=== PATIENT | female | born 1980 | race Caucasian/White ===

== ENCOUNTER 2016-05-04 20:08 | Emergency (ER) | payer MEDICAID ==
[~2016-05-04] VITALS: Ht 165.1 cm; Wt 103.0 kg
[2016-05-04 21:50] VITALS: BP 137/76
== END 2016-05-04 22:14 | disposition left against medical advice (07) ==
LOC: ER 20:09
DX: K08.89 Other specified disorders of teeth and supporting structures (principal); Z53.21 Procedure and treatment not carried out due to patient leaving prior to being seen by health care provider
CPT/HCPCS: 93005

== ENCOUNTER 2018-05-21 15:34 | Inpatient (IN) | payer MEDICAID ==
[~2018-05-21] VITALS: Ht 165.1 cm; Wt 98.3 kg
[2018-05-21 15:58] LABS: Basophils # (auto) 0.1 uL; Eosinophils # (auto) 0.2 uL; Hematocrit 37.1 % (36.0-46.0); Hemoglobin 11.5 g/dL (12.2-16.2); Lymphocytes # (auto) 1.9 uL; Monocytes # (auto) 0.8 uL
[2018-05-21 16:01] LABS: Basophils % (auto) 0.8 % (0.0-2.0); Eosinophils % (auto) 2.4 % (0.0-7.0); Lymphocytes % (auto) 20.4 % (10.0-50.0); Mean Corpuscular Hemoglobin 21.4 pg (28.0-32.0); Mean Corpuscular Hgb Conc. 30.9 g/dL (32.0-36.0); Mean Corpuscular Volume 69.2 fL (80.0-100.0); Monocytes % (auto) 8.6 % (0.0-12.0); Neutrophils # (auto) 6.2 uL; Neutrophils % (auto) 67.8 % (37.0-80.0); Nucleated Red Blood Cells % 0.1 %; Platelet Count (auto) 310 10^3/uL (140-450); Red Blood Cells 5.36 10^6/uL (4.0-5.20); Red Cell Distribution Width 18.7 % (11.8-14.3); White Blood Cell 9.1 10^3/uL (4.4-10.8)
[2018-05-21 16:13] LABS: Albumin 3.5 g/dL (3.4-5.0); Calcium 9.8 mg/dL (8.5-10.1); Magnesium 2.5 mg/dL (1.6-2.6)
[2018-05-21 16:17] LABS: BUN/Creatinine Ratio 12.5; Bilirubin, Total 0.3 mg/dL (0.2-1.0); Total Protein 8.1 g/dL (6.4-8.2)
[2018-05-21 16:47] LABS: Urine Amorphous Crystal MOD /hpf (None Seen); Urine Bacteria NONE SEEN /hpf (None Seen); Urine Blood Negative /uL (Negative); Urine Specific Gravity 1.016 (1.001-1.035); Urine WBC 1 /hpf (0 - 5)
[2018-05-21] MEDS ORDERED: IOHEXOL 350 MG/ML 100ML IJ ONE (20:17)
[2018-05-21] MEDS ORDERED: ENOXAPARIN SOD 100 MG/1 ML SYRINGE SC ONE (21:00)
[2018-05-21] MEDS ORDERED: HYDROcodone-ACET 10/325MG TAB PO ONE (22:30)
[2018-05-22] MEDS: ONDANSETRON HCL 4 MG/2 ML VIAL IV PRN ×4 (00:14→21:39)
[2018-05-22 05:55] LABS: Calcium 9.1 mg/dL (8.5-10.1)
[2018-05-22 06:03] LABS: Eosinophils # (auto) 0.1 uL; Hematocrit 33.3 % (36.0-46.0); Lymphocytes # (auto) 2.2 uL; Monocytes # (auto) 0.7 uL; Monocytes % (auto) 8.1 % (0.0-12.0); Neutrophils % (auto) 62.1 % (37.0-80.0); Nucleated Red Blood Cells % 0.1 %
[2018-05-22 06:08] LABS: INR 1.04 (0.9-1.15); Partial Thromboplastin Time 30.5 sec (23.78-33.04); Prothrombin Time 11.1 sec (9.27-12.13)
[2018-05-22 06:14] LABS: Basophils # (auto) 0 uL; Basophils % (auto) 0.5 % (0.0-2.0); Eosinophils % (auto) 1.7 % (0.0-7.0); Hemoglobin 10.4 g/dL (12.2-16.2); Lymphocytes % (auto) 27.6 % (10.0-50.0); Mean Corpuscular Hemoglobin 21.8 pg (28.0-32.0); Mean Corpuscular Hgb Conc. 31.3 g/dL (32.0-36.0); Mean Corpuscular Volume 69.5 fL (80.0-100.0); Platelet Count (auto) 275 10^3/uL (140-450); Red Blood Cells 4.79 10^6/uL (4.0-5.20); Red Cell Distribution Width 18.8 % (11.8-14.3)
[2018-05-22 06:58] LABS: White Blood Cell 8.1 10^3/uL (4.4-10.8)
[2018-05-22] MEDS: APIXABAN 5 MG TAB PO SCH ×2 (09:57→21:39)
[2018-05-22] MEDS: FAMOTIDINE 20 MG TAB PO SCH ×2 (09:57→21:39)
[2018-05-22] MEDS ORDERED: APIXABAN 5 MG TAB PO SCH (10:00)
[2018-05-22] MEDS: HYDROcodone-ACET 5/325MG TAB PO PRN ×2 (13:19→20:48)
--- NOTE | 2018-05-22 17:46 | NUR ---
ADMIT: Telemetry admit from RENETTA GIPSON admitted to Telemetry unit after SBAR received. Patient oriented to LOW FELIZ, primary RN, unit, room, bed, and unit policies regarding patient care and visiting hours. Patient now on continuous telemetry monitoring, tele box # 15 and telemetry reading on arrival to unit is SR 72. Patient placed on room air, weighed by bedscale and encouraged to call if they need something. All questions and concerns addressed, patient verbalized understanding. Note:
--- NOTE | 2018-05-22 19:05 | NUR ---
Opening Note Received report from day shift RN. Patient is awake, alert and oriented x4. No signs or symptoms of distress noted at this time. Patient states headache 09/25. Will medicated per orders. Reviewed plan of care with patient, patient verbalized understanding. Family at bedside. Bed in low and locked position, call light within reach. Will continue to monitor Q1 hour and PRN.
--- NOTE | 2018-05-22 19:23 | NUR ---
CLOSING SHIFT NOTE: Report given to NOC RN, Sarita. Endorsed care of patient.
[2018-05-22 22:00] VITALS: BP 106/52
--- NOTE | 2018-05-23 03:31 | NUR ---
Patient resting in bed with eyes closed. No signs or symptoms of distress noted at this time. Will continue to monitor Q1 hour and PRN.
[2018-05-23 05:00] VITALS: BP 103/51
[2018-05-23 06:54] LABS: Basophils # (auto) 0.1 uL; Basophils % (auto) 0.8 % (0.0-2.0); Eosinophils # (auto) 0.2 uL; Eosinophils % (auto) 2.9 % (0.0-7.0); Hematocrit 32.7 % (36.0-46.0); Hemoglobin 10.3 g/dL (12.2-16.2); Lymphocytes # (auto) 1.8 uL; Lymphocytes % (auto) 25.3 % (10.0-50.0); Mean Corpuscular Hemoglobin 21.8 pg (28.0-32.0); Mean Corpuscular Hgb Conc. 31.4 g/dL (32.0-36.0); Mean Corpuscular Volume 69.2 fL (80.0-100.0); Monocytes # (auto) 0.6 uL; Monocytes % (auto) 7.7 % (0.0-12.0); Neutrophils # (auto) 4.6 uL; Neutrophils % (auto) 63.3 % (37.0-80.0); Platelet Count (auto) 261 10^3/uL (140-450); Red Blood Cells 4.72 10^6/uL (4.0-5.20); Red Cell Distribution Width 18.5 % (11.8-14.3); White Blood Cell 7.2 10^3/uL (4.4-10.8)
[2018-05-23 07:20] LABS: % Iron Saturation 3.7 % (15-50)
[2018-05-23 07:26] LABS: BUN/Creatinine Ratio 15.7; Calcium 9.3 mg/dL (8.5-10.1); Magnesium 2.3 mg/dL (1.6-2.6)
--- NOTE | 2018-05-23 07:32 | NUR ---
Closing Note Report given to day shift RN. Patient is awake, alert and oriented x4. No signs or symptoms of distress noted at this time.
--- NOTE | 2018-05-23 07:35 | NUR ---
Opening Shift Note Assumed care of patient, awake and alert. No S/S of distress/SOB or pain. Instructed on POC and to call for assist PRN, will continue to monitor for changes Q1hr and PRN.
[2018-05-23 09:00] VITALS: BP 99/56
[2018-05-23] MEDS: FAMOTIDINE 20 MG TAB PO SCH ×2 (10:21→21:32)
[2018-05-23] MEDS: APIXABAN 5 MG TAB PO SCH ×2 (10:21→21:32)
[2018-05-23] MEDS: ONDANSETRON HCL 4 MG/2 ML VIAL IV PRN ×2 (10:50→21:36)
[2018-05-23] MEDS: HYDROcodone-ACET 5/325MG TAB PO PRN ×2 (10:51→21:36)
[2018-05-23 13:00] VITALS: BP 134/74
[2018-05-23] MEDS ORDERED: NICOTINE 21MG/24 HR TOPICAL PATCH TD ONE (13:30)
--- NOTE | 2018-05-23 13:50 | NUR ---
Patient was taken down to radiology department.
--- NOTE | 2018-05-23 14:36 | NUR ---
Patient is back in her room from radiology.
[2018-05-23] MEDS: ACETAMINOPHEN 500 MG TAB PO PRN (16:44)
[2018-05-23 17:54] VITALS: BP 121/76
--- NOTE | 2018-05-23 17:54 | NUR ---
Patient was moved to [address].
--- NOTE | 2018-05-23 19:00 | NUR ---
Closing note Patient resting in bed, no signs of distress noted.
--- NOTE | 2018-05-23 19:15 | NUR ---
Opening Note Received change of shift report from day shift RN. Patient is awake, alert and oriented x4. Patient denies pain at this time. No signs or symptoms of distress noted at this time. Patient is s/p thyroid biopsy, dressing is clean dry and intact. Reviewed plan of care with patient, patient verbalized understanding. Family at bedside. Bed in low and locked position, call light within reach. Will continue to monitor Q1 hour and PRN.
--- NOTE | 2018-05-23 21:40 | NUR ---
Patient complains of headache Patient given Colora for pain and Zofran per orders. Will continue to monitor Q1 hour and PRN.
[2018-05-23 22:00] VITALS: BP 127/75
--- NOTE | 2018-05-24 01:40 | NUR ---
Patient resting in bed with eyes closed. No signs or symptoms of distress noted at this time. Will continue to monitor Q1 hour and PRN.
--- NOTE | 2018-05-24 02:30 | NUR ---
Patient tele box replaced. Patient tele box not working correctly. Patient is now on tele #18 and is showing on the [place] monitor.
[2018-05-24 05:00] VITALS: BP 93/56
--- NOTE | 2018-05-24 07:16 | NUR ---
Closing Note Report given to day shift RN. Patient is awake, alert and oriented x4. No signs or symptoms of distress noted at this time.
[2018-05-24 07:51] LABS: Hematocrit 34.5 % (36.0-46.0); Hemoglobin 10.7 g/dL (12.2-16.2)
--- NOTE | 2018-05-24 08:30 | NUR ---
Stool sample sent to lab.
[2018-05-24 09:00] VITALS: BP 111/64
[2018-05-24] MEDS ORDERED: IOHEXOL 300 MG/ML 100ML BOTTLE IJ ONE (09:10)
[2018-05-24] MEDS: FAMOTIDINE 20 MG TAB PO SCH ×2 (09:59→21:25)
[2018-05-24] MEDS: APIXABAN 5 MG TAB PO SCH ×2 (09:59→21:27)
[2018-05-24] MEDS: NICOTINE 21MG/24 HR TOPICAL PATCH TD SCH (09:59)
[2018-05-24 13:00] VITALS: BP 112/65
[2018-05-24 16:29] VITALS: BP 117/70
[2018-05-24] MEDS: ACETAMINOPHEN 500 MG TAB PO PRN (16:36)
--- NOTE | 2018-05-24 19:00 | NUR ---
Closing note Patient resting in bed, family at bedside. No signs of distress noted.
--- NOTE | 2018-05-24 19:30 | NUR ---
OPENING NOTE REPORT RECEIVED FROM DAY SHIFT RN PATIENT IS RESTING IN BED, FAMILY IS AT BEDSIDE. POC DISCUSSED, ALL QUESTIONS ANSWERED. WILL MONITOR Q1H PRN THROUGHOUT SHIFT.CALL LIGHT WITHIN REACH.
--- NOTE | 2018-05-24 20:15 | NUR ---
TELE BOX CHANGED TELE BOX TO TELE #HC 8 PATIENT RUNNING SINUS RHYTHM
[2018-05-24] MEDS: HYDROcodone-ACET 5/325MG TAB PO PRN (21:26)
[2018-05-24 22:00] VITALS: BP 119/61
[2018-05-25] VITALS (7 sets, daily range): BP systolic 88–122; BP diastolic 58–74
--- NOTE | 2018-05-25 06:00 | NUR ---
BP REASSESSMENT BP NOW AT 116/74 NO S/S OF DISTRESS PATIENT STATES THAT EARLIER BP WAS LOW BECAUSE SHE WAS IN A "DEEP SLEEP"
[2018-05-25 06:31] LABS: Hematocrit 34.7 % (36.0-46.0)
--- NOTE | 2018-05-25 07:40 | NUR ---
CLOSING NOTE REPORT ENDORSED TO DAY SHIFT RN PATIENT IS RESTING. NO SOB OR DISTRESS NOTED, CALL LIGHT WITHIN REACH
--- NOTE | 2018-05-25 07:45 | NUR ---
Patient sitting in bed, awake, oriented x4, eating breakfast. No acute distress noted.
--- NOTE | 2018-05-25 10:45 | NUR ---
Family member at bedside.
[2018-05-25] MEDS: FAMOTIDINE 20 MG TAB PO SCH ×2 (10:46→22:04)
[2018-05-25] MEDS: APIXABAN 5 MG TAB PO SCH ×2 (10:46→22:04)
[2018-05-25] MEDS: NICOTINE 21MG/24 HR TOPICAL PATCH TD SCH (10:46)
--- NOTE | 2018-05-25 11:30 | NUR ---
Patient in bed, awake, no complaints of pain. No acute distress noted.
[2018-05-25] MEDS: HYDROcodone-ACET 5/325MG TAB PO PRN ×2 (14:02→22:04)
--- NOTE | 2018-05-25 14:02 | NUR ---
Patient stated she has headache and lower back pain, at 10/10 at this time. [place] 5/325 PO given as ordered.
--- NOTE | 2018-05-25 16:02 | NUR ---
Dr. Kerns at bedside.
--- NOTE | 2018-05-25 18:55 | NUR ---
Asked patient if she's in pain. Patient stated she has headache but refused [place] 5/325 at this time. Patient said she will wait until bedtime for pain medication.
--- NOTE | 2018-05-25 19:30 | NUR ---
RECEIVED PATIENT FROM DAY SHIFT RN. PATIENT RESTING IN BED. NO S/S OF DISTRESS NOTED C/O HEADACHE @ 09/25. NO PAIN MEDICATION REQUESTED FOR NOW. PATIENT PREFERRED TO TAKE IT AT BEDTIME. POC INSTRUCTED AND ENCOURAGED PATIENT TO CALL FOR EARTH SCIENCE TECHNICAL OFFICER IF NEEDED. BED IN LOWEST POSITION WITH SIDE RAILS UP X 2. CALL SINGH WITHIN REACH. CONTINUE TO MONITOR FOR CHANGES Q1H AND PRN.
--- NOTE | 2018-05-25 22:04 | NUR ---
PAIN MEDICATION GIVEN FOR SOLIS @ 09/25. CONTINUE TO MONITOR.
[2018-05-26 05:00] VITALS: BP 126/55
[2018-05-26 07:30] LABS: Basophils # (auto) 0.1 uL; Basophils % (auto) 0.7 % (0.0-2.0); Eosinophils # (auto) 0.3 uL; Hemoglobin 11.2 g/dL (12.2-16.2); Mean Corpuscular Hgb Conc. 31.2 g/dL (32.0-36.0); Monocytes # (auto) 0.7 uL; Monocytes % (auto) 9.2 % (0.0-12.0); Neutrophils # (auto) 4.7 uL
--- NOTE | 2018-05-26 07:32 | NUR ---
Patient came out of the bathroom. Patient no complaints of pain. Patient stated she pressed the call light for a towel, and it was already given to her by the aide.
[2018-05-26 07:34] LABS: Eosinophils % (auto) 4.1 % (0.0-7.0); Hematocrit 35.8 % (36.0-46.0); Lymphocytes # (auto) 1.8 uL; Lymphocytes % (auto) 24.2 % (10.0-50.0); Mean Corpuscular Hemoglobin 21.6 pg (28.0-32.0); Mean Corpuscular Volume 69.3 fL (80.0-100.0); Neutrophils % (auto) 61.8 % (37.0-80.0); Platelet Count (auto) 311 10^3/uL (140-450); Red Blood Cells 5.17 10^6/uL (4.0-5.20); Red Cell Distribution Width 18.5 % (11.8-14.3); White Blood Cell 7.5 10^3/uL (4.4-10.8)
[2018-05-26 07:47] LABS: Calcium 9.4 mg/dL (8.5-10.1)
[2018-05-26 09:00] VITALS: BP_SYST 98; BP_SYST 99; BP_DIAS 60; BP_DIAS 65
[2018-05-26] MEDS: FAMOTIDINE 20 MG TAB PO SCH ×2 (10:02→22:02)
[2018-05-26] MEDS: APIXABAN 5 MG TAB PO SCH ×2 (10:02→22:02)
[2018-05-26] MEDS: NICOTINE 21MG/24 HR TOPICAL PATCH TD SCH (10:03)
--- NOTE | 2018-05-26 10:06 | NUR ---
Patient in bed, denies pain at this time.
[2018-05-26 13:00] VITALS: BP 99/65
--- NOTE | 2018-05-26 13:09 | NUR ---
Dr. Kerns at bedside. MD ordered to follow up with Pulmonology Consult.
--- NOTE | 2018-05-26 16:25 | NUR ---
Patient walking on the hallway with family member. Steady gait noted.
[2018-05-26 18:09] VITALS: BP 122/84
[2018-05-26] MEDS: HYDROcodone-ACET 5/325MG TAB PO PRN (19:39)
--- NOTE | 2018-05-26 19:47 | NUR ---
RECEIVED PATIENT FROM DAY SHIFT RN. PATIENT RESTING IN BED. NO S/S OF DISTRESS NOTED C/O HEADACHE @ 8. MEDICATED PATIENT ORDERED. POC INSTRUCTED AND ENCOURAGED PATIENT TO CALL FOR WIRE MESH GATE ASSEMBLER IF NEEDED. BED IN LOWEST POSITION WITH SIDE RAILS UP X 2. CALL SINGH WITHIN REACH. CONTINUE TO MONITOR FOR CHANGES Q1H AND PRN.
[2018-05-26 22:00] VITALS: BP 115/56
--- NOTE | 2018-05-26 22:16 | NUR ---
PATIENT RESTING IN BED. NO S/S OF DISTRESS NOTED. DENIED PAIN FOR NOW. CONTINUE TO MONITOR.
--- NOTE | 2018-05-27 02:23 | NUR ---
PATIENT SLEEPING. NO S/S OF DISTRESS NOTED. CONTINUE CARE.
[2018-05-27 04:54] VITALS: BP 113/64
[2018-05-27 06:40] LABS: Basophils # (auto) 0.1 uL; Hemoglobin 11.3 g/dL (12.2-16.2); Lymphocytes # (auto) 1.6 uL; Mean Corpuscular Hemoglobin 21.6 pg (28.0-32.0); White Blood Cell 8.6 10^3/uL (4.4-10.8)
[2018-05-27 06:42] LABS: Basophils % (auto) 0.7 % (0.0-2.0); Eosinophils # (auto) 0.3 uL; Eosinophils % (auto) 2.9 % (0.0-7.0); Lymphocytes % (auto) 19.1 % (10.0-50.0); Mean Corpuscular Hgb Conc. 31.4 g/dL (32.0-36.0); Monocytes # (auto) 0.8 uL; Monocytes % (auto) 8.8 % (0.0-12.0); Neutrophils # (auto) 5.9 uL; Neutrophils % (auto) 68.5 % (37.0-80.0); Platelet Count (auto) 313 10^3/uL (140-450); Red Blood Cells 5.22 10^6/uL (4.0-5.20); Red Cell Distribution Width 18.7 % (11.8-14.3)
[2018-05-27 07:00] LABS: BUN/Creatinine Ratio 21.6; Calcium 8.7 mg/dL (8.5-10.1)
--- NOTE | 2018-05-27 07:40 | NUR ---
Opening Shift Note Assumed care of patient, asleep. No S/S of distress/SOB. Will continue to monitor for changes Q1hr and PRN.
[2018-05-27 08:58] VITALS: BP 112/68
[2018-05-27] MEDS: NICOTINE 21MG/24 HR TOPICAL PATCH TD SCH (09:51)
[2018-05-27] MEDS: FAMOTIDINE 20 MG TAB PO SCH ×2 (09:51→21:39)
[2018-05-27] MEDS: APIXABAN 5 MG TAB PO SCH (09:51)
--- NOTE | 2018-05-27 10:22 | NUR ---
RECALLED PULMONOLOGY CONSULT, SPOKE TO LAMBERT.
--- NOTE | 2018-05-27 11:15 | NUR ---
Dr. Plasencia at bedside.
[2018-05-27 13:00] VITALS: BP 118/74
[2018-05-27] MEDS: HYDROcodone-ACET 5/325MG TAB PO PRN (13:32)
--- NOTE | 2018-05-27 15:02 | NUR ---
Nutrition Assessment Notes Please see attached link for complete assessment Est. Needs ABW [id number] kcal (20-23 kcal/kgBW), 77-84 gms pro (1.0-1.1 gms/kgBW). Will continue to monitor pertinent labs and reassess nutrient need prn Addendum: 05/27/18 at [address] Amended: Links added.
[2018-05-27] MEDS ORDERED: HYDROcodone-ACET 5/325MG TAB PO PRN (15:45)
--- NOTE | 2018-05-27 16:00 | NUR ---
IV removal on left AC Patient complained of pain on IV site, redness noted per inspection, IV DC'd with clean sterile technique, catheter fully intact. Pressure dressing applied to site. Patient tolerated well.
[2018-05-27 16:42] VITALS: BP 118/67
--- NOTE | 2018-05-27 17:00 | NUR ---
IV insertion IV access obtained, via clean sterile technique by inserting 22 gauge catheter at right hand after 1 attempt. IV secured properly. No trauma to site. Patient tolerated well.
--- NOTE | 2018-05-27 19:41 | NUR ---
CLOSING NOTE PATIENT RESTING IN BED, NO SIGNS OF DISTRESS NOTED.
--- NOTE | 2018-05-27 19:41 | NUR ---
RECEIVED PATIENT FROM DAY SHIFT RN. PATIENT RESTING IN BED. NO S/S OF DISTRESS NOTED. DENIED HEADACHE FOR NOW. POC INSTRUCTED AND ENCOURAGED PATIENT TO CALL FOR CRIMINAL INVESTIGATOR CUSTOMS IF NEEDED. BED IN LOWEST POSITION WITH SIDE RAILS UP X 2. CALL SINGH WITHIN REACH. CONTINUE TO MONITOR FOR CHANGES Q1H AND PRN.
[2018-05-27] MEDS: ENOXAPARIN SOD 100 MG/1 ML SYRINGE SC SCH (21:39)
--- NOTE | 2018-05-27 21:40 | NUR ---
PATIENT C/O HEADACHE @ 10/26. MEDICATED PATIENT ORDERED. LOVENOX SC ADMINISTERED ORDERED. INSTRUCTED PATIENT ON SIDE EFFECTS OF MEDICATION. PATIENT VERBALIZED UNDERSTANDING. CONTINUE TO MONITOR.
--- NOTE | 2018-05-28 01:59 | NUR ---
PATIENT SLEEPING. NO S/S OF DISTRESS NOTED. CONTINUE CARE.
[2018-05-28 05:11] VITALS: BP 102/63
--- NOTE | 2018-05-28 07:35 | NUR ---
Opening Shift Note Assumed care of patient, asleep. No S/S of distress. Will continue to monitor for changes Q1hr and PRN.
[2018-05-28 08:13] VITALS: BP 103/66
[2018-05-28] MEDS: FAMOTIDINE 20 MG TAB PO SCH (09:31)
[2018-05-28] MEDS: ENOXAPARIN SOD 100 MG/1 ML SYRINGE SC SCH (09:31)
[2018-05-28] MEDS: NICOTINE 21MG/24 HR TOPICAL PATCH TD SCH (09:31)
--- NOTE | 2018-05-28 09:35 | NUR ---
Taught patient how to self administer Lovenox subcutaneously. Patient return demonstrated the procedure and tolerated well.
[2018-05-28 13:17] VITALS: BP 111/67
[2018-05-28] MEDS ORDERED: NIC21P TD (14:11)
[2018-05-28] MEDS ORDERED: ENO100SY SC (14:11)
[2018-05-28] MEDS ORDERED: PANT40TA2 PO (14:11)
[2018-05-28] MEDS ORDERED: ALBUAER3 IN (14:11)
[2018-05-28 17:05] VITALS: BP 121/88
--- NOTE | 2018-05-28 17:23 | NUR ---
[facility] Informed him of the result of Left arm venous ultrasound.
--- NOTE | 2018-05-28 17:50 | NUR ---
Discharge instructions given as ordered. Encourage to follow up with PMD, oncologist and claims agent right of way as instructed. All questions and concerns addressed. Patient verbalized understanding. Medication reconciliation form completed and copy given to patient. IV removed with catheter intact, pressure dressing applied. Telemetry unit returned to [facility]. Patient taken to vehicle via wheelchair with all personal belongings, accompanied by staff and family member. No distress noted at time of departure.
[2018-05-29] MEDS ORDERED: APIXABAN 5 MG TAB PO SCH (22:00)
== END 2018-05-28 17:50 | disposition home or self-care (01) | DRG 427 ==
LOC: ER 15:51 → TELE 22:30 → TELE-WESTW 05-22 17:40
PROVIDERS: ADMIT Nurse Practitioner Family; ATTEND Internal Medicine
PROC: 0GBH3ZX Excision of Right Thyroid Gland Lobe, Percutaneous Approach, Diagnostic (ICD-10-PCS; principal; 2018-05-21)
PROC: BG44ZZZ Ultrasonography of Thyroid Gland (ICD-10-PCS; 2018-05-21)
DX: E04.1 Nontoxic single thyroid nodule (principal); I26.99 Other pulmonary embolism without acute cor pulmonale; J96.00 Acute respiratory failure, unspecified whether with hypoxia or hypercapnia; D68.59 Other primary thrombophilia; I82.612 Acute embolism and thrombosis of superficial veins of left upper extremity; D50.9 Iron deficiency anemia, unspecified; F17.210 Nicotine dependence, cigarettes, uncomplicated; R91.1 Solitary pulmonary nodule; J98.11 Atelectasis; I10 Essential (primary) hypertension; Z98.51 Tubal ligation status; Z79.01 Long term (current) use of anticoagulants; Z80.0 Family history of malignant neoplasm of digestive organs; Z80.1 Family history of malignant neoplasm of trachea, bronchus and lung; Z90.49 Acquired absence of other specified parts of digestive tract; Z98.891 History of uterine scar from previous surgery
CPT/HCPCS: 36415; 71046; 71275; 74177; 76536; 76942; 80048; 80053; 80061; 81001; 81025; 81241; 82270; 83540; 83550; 83735; 84443; 85014; 85018; 85025; 85301; 85302; 85303; 85305; 85306; 85379; 85610; 85613; 85670; 85705; 85730; 85732; 86147; 93005; 93306; 93970; 93971; 96372; G0378; J2405

== ENCOUNTER 2021-01-31 21:01 | Emergency (ER) | payer MEDICAID ==
[~2021-01-31] VITALS: Ht 167.6 cm; Wt 95.3 kg
[~2021-01-31 21:01] MED LIST: ALBUAER3 IN; ENO100SY SC; NIC21P TD; PANT40TA2 PO
[2021-02-01 00:55] VITALS: BP 145/80
== END 2021-02-01 01:08 | disposition home or self-care (01) ==
LOC: ER 21:03
DX: M25.551 Pain in right hip (principal); M54.16 Radiculopathy, lumbar region; M54.41 Lumbago with sciatica, right side; E66.9 Obesity, unspecified; Z90.49 Acquired absence of other specified parts of digestive tract; Z98.51 Tubal ligation status; Z68.33 Body mass index [BMI] 33.0-33.9, adult; W07.XXXA Fall from chair, initial encounter; Y93.89 Activity, other specified; Y92.89 Other specified places as the place of occurrence of the external cause; Y99.8 Other external cause status
CPT/HCPCS: 72100; 73502

== ENCOUNTER 2021-03-29 12:52 | Emergency (ER) | payer MEDICAID ==
[~2021-03-29] VITALS: Ht 167.6 cm; Wt 95.3 kg
[2021-03-29] MEDS ORDERED: ALBU108A5 IN (17:40)
[2021-03-29] MEDS ORDERED: AZIT500T66 PO (17:40)
[2021-03-29] MEDS ORDERED: METH4PAK PO (17:40)
[2021-03-29 17:55] VITALS: BP 150/88
== END 2021-03-29 17:50 | disposition home or self-care (01) ==
LOC: ER 12:52
DX: U07.1 COVID-19 (principal); M79.10 Myalgia, unspecified site; J45.909 Unspecified asthma, uncomplicated; Z90.49 Acquired absence of other specified parts of digestive tract
CPT/HCPCS: 36415; 87426; 93005